=== PATIENT | female | born 1995 | race Caucasian/White ===

== ENCOUNTER 2019-03-19 09:51 | Inpatient (IN) | payer OTHER, SELFPAY ==
--- NOTE | 2019-03-12 12:52 | PCM.HP.BLA ---
History and Physical Date of Admission: 03/19/19 Pre-Op History and Physical ? HPI: The patient is a 23 year old female presenting for pre-operative visit. She is scheduled for?, for?breech on?03/19/19. ??Procedure discussed along with risks, benefits and complications. ?Other alternatives discussed for management. Consent form signed??Yes.? PAST?MEDICAL?HISTORY PAST MEDICAL HISTORY Diagnosis Date ? Asthma ? ? hemolytic uremic syndrome ? ? 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 PMH - PAST MEDICAL HISTORY OF 2005 ? kidney failure from ecoli ? ? PAST?SURGICAL?HISTORY PAST SURGICAL HISTORY Procedure Laterality Date ? PAST SURGICAL HISTORY OF ? ? ? for cath insertion for diaylisis ? ? CURRENT?MEDICATIONS Current Outpatient Medications Medication Sig Dispense Refill ? 21/iron fu/folic acid ( COMPLETE ORAL) Take by mouth. ? ? ? albuterol HFA (PROVENTIL HFA, VENTOLIN HFA) 90 mcg/actuation inhaler Inhale 2 Puffs as instructed every 6 hours as needed for Wheezing/Shortness of Breath. 1 Inhaler 2 ? No current facility-administered medications for this visit.? ? ALLERGIES:?Patient has no known allergies. ? PERSONAL HISTORY:? SOCIAL?HISTORY Social History ??Socioeconomic History ?Marital status: ?Spouse name: Tony ?Number of children: 0 ?Years of education: 16 ?Highest education level: Not on file ??Occupational History ?Occupation: DESKTOP SUPPORT ASSOCIATE ?Employer: [employer] ??Social Needs ?Financial resource strain: Not on file ?Food insecurity: ?Worry: Not on file ?Inability: Not on file ?Transportation needs: ?Medical: Not on file ?Non-medical: Not on file ??Tobacco Use ?Smoking status: Never Smoker ?Smokeless tobacco: Never Used ??Substance and Sexual Activity ?Alcohol use: Yes ?Comment: occasionally, not while ?Drug use: No ?Sexual activity: Yes ?Partners: Male ? control/protection: Condom, Pill ??Lifestyle ?Physical activity: ?Days per week: Not on file ?Minutes per session: Not on file ?Stress: Not on file ??Relationships ?Social connections: ?Talks on phone: Not on file ?Gets together: Not on file ?Attends episcopalian service: Not on file ?Active member of club or organization: Not on file ?Attends meetings of clubs or organizations: Not on file ?Relationship status: Not on file ?Intimate partner violence: ?Fear of current or ex partner: Not on file ?Emotionally abused: Not on file ?Physically abused: Not on file ?Forced sexual activity: Not on file ??Other Topics ?Concerns: ?Not on file ??Social History Narrative ?Not on file ? FAMILY HISTORY:? FAMILY?HISTORY FAMILY HISTORY Problem Relation Age of Onset ? Thyroid Mother ?Hypothyroidism ? Diabetes Father ? ? Hypertension Father ? ? No Known Problems Brother ? ? Heart Maternal Grandmother ? ? other (Aortic Aneurysm) Maternal Grandmother ? ? Heart Attack Maternal Grandfather ? ? Cancer Paternal Grandmother ?Uterine and Colon Cancer ? No Known Problems Paternal Grandfather ? ? Hypertension Sister ? ? REVIEW OF SYMPTOMS: GENERAL: denies fevers or chills ENDOCRINOLOGY: has not been on steroids Cardiology : denies palpitations or chest pain Respiratory: denies SOB or cough Hematology: denies history of prolonged bleeding or easy bruising or VTE Allergy: Denies history of personal or family history of allergy to anesthesia ? ? PHYSICAL EXAMINATION: ? VITALS:?Last menstrual period 06/19/2018. ? GENERAL:??The patient is well nourished, well hydrated in no acute distress. ?, The patient is oriented to time, place, and person. NECK:?Supple. No lynphadenopathy, normal thyroid, no thyromegaly. LUNGS:?Clear to auscultation bilaterally. no wheezes, rhonchi or rales HEART:?Regular rate and rhythm, Normal heart sounds and No murmurs or gallops abd: soft, nontender, gravid ? IMPRESSION:?39 weeks on 03/19, breech ? PLAN:???The risks/benefits/alternatives and personal involved for the planned?c-s?were reviewed with the patient. Her questions were answered to her satisfaction and she desires to proceed. ?Consent was signed. ?I reviewed with her postop instructions and expectations. ? ? I have reviewed and updated past medical and surgical history, medications and allergies? Maren Bhakta M.D.
[2019-03-19] VITALS (20 sets, daily range): BP systolic 108–127; BP diastolic 53–89; PULSE 70–92; RESP 16–18; TEMP 36.1–36.7; O2SAT 96–99; BMI 38.7
[2019-03-19] MEDS: Lactated Ringers 1,000 ML 999 ML IV (10:50)
[2019-03-19 11:23] LABS: Absolute Lymphocyte Count 1.43 X10^3/uL (0.83-4.51); Absolute Neutrophil Count 6.1 X10^3/uL (2.0-7.7); Basophil# 0.03 X10^3/uL; Basophil% 0.4 % (0-1); Eosinophil# 0.08 X10^3/uL; Hematocrit 36.7 % (37-47); Hemoglobin 12.6 g/dL (12.0-15.0); Lymphocyte # 1.43 X10^3/ul (4.0); Lymphocyte % 17.3 % (19-41); Mean Corp Hgb Conc 34.3 g/dL (32-36); Mean Corpuscular Hgb 31.3 pg (27.0-32.0); Mean Corpuscular Volume 91.3 fL (81-99); Mean Platelet Vol. 9.8 fl (6.2-12.0); Monocyte# 0.65 X10^3/uL; Monocyte% 7.9 % (0-10); NRBC Flagged by Analyzer 0 % (0-5); Neutrophil # 6.06 X10^3/uL (2.7-7.7); Platelet Count 168 K/mm3 (150-450); RBC Distribution Width CV 13.2 % (11.6-14.6); RBC Distribution Width SD 43.8 fl (35.1-43.9); Red Blood Count 4.02 M/mm3 (4.2-5.4); White Blood Count 8.3 K/mm3 (4.4-11.0)
[2019-03-19] MEDS: Lactated Ringers 1,000 ML 150 ML IV (12:00)
[2019-03-19] MEDS: Sodium Citrate/Citric Acid 30 ML UDC PO (12:10)
[2019-03-19] MEDS: Cefazolin 2 GM in 0.9% Normal Saline 100 ML IV (12:20)
[2019-03-19] MEDS: Oxytocin 30 units/NS 500 ml 30 UNITS/500 ML IV.SOLN 167 UNITS IV (13:30)
--- NOTE | 2019-03-19 16:01 | PCM.OPRPT ---
Delivery Classification: Scheduled Final RUBEN: 03/26/19 Final RUBEN Source: US <20 weeks Gestational age: 39 Weeks and 0 Days metal control coordinator: LIUDMILA Boone First Type of Anesthesia:: Spinal Special Medications: none Implants Used: none Date of Procedure: 03/19/19 Pre-Operative Diagnosis: 39 week nulliparous patient, joanna breech presentation Post-Operative Diagnosis: same Indications for : Breech Description of Procedure: the patient taken operating room where she was prepped and draped in dorsal supine position with leftward tilt. After ensuring adequacy of anesthesia, a Pfannenstiel skin incision was made 2 cm above the symphysis pubis and carried through to the underlying layer fashion with scalpel. the fascia was incised in the midline and the fascial incision was extended laterally with the Padilla scissors. The fascia was dissected off the rectus muscles and the rectus muscles are in the midline. The peritoneum was entered sharply and the peritoneal incision carried superiorly late and inferiorly with good visualization of bladder. The bladder blade was inserted and the uterine incision was made in a low transverse fashion with the scalpel and extended with traction on the uterus placed superiorly and inferiorly. The membranes were ruptured for clear fluid. The buttocks were brought out of the incision and the legs were swept out individually. With gentle fundal pressure to keep the head flexed, the arms were swept out individually and the head was delivered easily. The infant was stimulated. Cord clamping was delayed a Nicki 30 seconds. The cord was then clamped and cut and the infant was handed off to the waiting nursing staff. The placenta was extracted with gentle cord traction and fundal massage and the uterus was exteriorized and cleared of all clots and debris. The cervix was dilated with a ring forcep. The uterine incision was closed with #1 Vicryl suture in a running locked fashion. A second layer suture was placed imbricating the first, and the uterine incision was hemostatic. The peritoneal cavity was cleared of all clots and debris and the uterus is placed back into the peritoneal cavity. Again the uterine incision was examined and found to be hemostatic. The parietal peritoneum and rectus muscles were closed en bloc with a #1 Vicryl suture in a running standard fashion. Any bleeding was Bovie cauterized. Our gloves were changed, and the fascia was closed with PDS suture in a running standard fashion. The subcutaneous tissue was examined and any bleeding was Bovie cauterized and it was reapproximated with 3-0 Vicryl suture in a running standard fashion. Subcutaneous tissue was reapproximated in subcuticular fashion by the CHILD LIFE ASSISTANT with me present in the operating suite. Sponge and needle counts were correct. The patient was taken to her room for recovery in stable condition.I performed the entire procedure with assistance other than as dictated above. Amniotic Membrane Rupture Type: Artificial Amniotic Fluid Description: Clear Placenta Disposition: [facility] Specimen(s) sent to pathology: none Drain: Kuhn to straight drain Fluids Replaced: 1000 Cord Entanglement: None Cord Vessel Description: 3 Vessels Esitmated Blood Loss (ml): 900 Gender: Female - 8lb 7 oz, [place] (1 minute): 9 (5 minute): 9 Delayed cord clamping: Yes Antibiotic Given: Ancef 2 grams IV x1 Complications: None - Admit VTE Documentation VTE Present on Admission: No VTE Mechan Device Prophylaxis: SCD's VTE Pharm Prophylaxis ordered?: Yes
[2019-03-19] MEDS: Lactated Ringers 1,000 ML 100 ML IV (16:51)
[2019-03-19] MEDS: Ketorolac 30 MG/ML Syringe IV (18:31)
[2019-03-19] MEDS: Docusate Sodium 100 MG Capsule PO (22:52)
[2019-03-19] MEDS: Senna/Docusate Sodium 1 Tablet PO (22:52)
[2019-03-20] VITALS (12 sets, daily range): BP systolic 108–130; BP diastolic 55–77; PULSE 78–91; RESP 12–18; TEMP 36.2–36.9; O2SAT 96–98
[2019-03-20] MEDS: Ketorolac 30 MG/ML Syringe IV ×4 (00:07→18:06)
[2019-03-20] MEDS: Lactated Ringers 1,000 ML 100 ML IV (02:01)
[2019-03-20 06:55] LABS: Hematocrit 30.7 % (37-47); Hemoglobin 10.3 g/dL (12.0-15.0); Mean Corp Hgb Conc 33.6 g/dL (32-36); Mean Corpuscular Hgb 30.6 pg (27.0-32.0); Mean Corpuscular Volume 91.1 fL (81-99); Mean Platelet Vol. 9.3 fl (6.2-12.0); Platelet Count 148 K/mm3 (150-450); RBC Distribution Width CV 13.4 % (11.6-14.6); RBC Distribution Width SD 44.5 fl (35.1-43.9); Red Blood Count 3.37 M/mm3 (4.2-5.4); White Blood Count 11.5 K/mm3 (4.4-11.0)
--- NOTE | 2019-03-20 10:27 | PN.OBGYN_ITS ---
Subjective: Pain controlled - Physical Exam General: Alert, Oriented x3 Abdomen: Soft, Non Tender, Non-Distended - ff mid & below umb; inc - bandage intact with stable dried blood Extremities: No Calf Tenderness Vital Signs Temp Pulse Resp BP Pulse Ox 97.1 F L 78 12 111/63 97 03/20/19 08:53 03/20/19 08:53 03/20/19 08:53 03/20/19 08:53 03/20/19 08:53 Oxygen Delivery Method Room Air Weight: 232 lb 12.93 oz Body Mass Index (BMI) 38.7 Intake and Output for Last 24 Hours 03/18/19 03/19/19 03/20/19 23:59 23:59 23:59 Intake Total 3526.67 / 3526.67 Output Total 275 / 675 1900 / 1900 Balance 3251.67 / 2851.67 115.00 / 115.00 Laboratory Tests Past 24 Hrs 03/19/19 03/19/19 03/20/19 10:50 10:50 06:45 WBC 8.3 11.5 H RBC 4.02 L 3.37 L Hgb 12.6 10.3 L Hct 36.7 L 30.7 L MCV 91.3 91.1 MCH 31.3 30.6 MCHC 34.3 33.6 RDW Std Deviation 43.8 44.5 H RDW Coeff of Kalee 13.2 13.4 Plt Count 168 148 L MPV 9.8 9.3 Immature Gran % (Auto) 0.400 Neut % (Auto) 73.0 H Lymph % (Auto) 17.3 L [place] % (Auto) 7.9 Eos % (Auto) 1.0 Baso % (Auto) 0.4 Absolute Neuts (auto) 6.1 Absolute Lymphs (auto) 1.43 Nucleated RBC % 0 Blood Type O POSITIVE Antibody Screen NEGATIVE Medical Necessity - Tobacco Use Smoking Status: Never smoker Assessment/Plan POD#1 Heme - HDS, cbc reviewed ID - AF, no signs infection GI - ADAT - adequate UOP
[2019-03-20] MEDS: Enoxaparin 40 MG/0.4 ML Syringe SC (11:17)
[2019-03-20] MEDS: Senna/Docusate Sodium 1 Tablet PO ×2 (11:17→21:41)
[2019-03-20] MEDS: Docusate Sodium 100 MG Capsule PO (11:17)
[2019-03-20] MEDS: 0.9% Saline Lock 10 ML Syringe IV ×2 (11:17→18:06)
[2019-03-20] MEDS: Acetaminophen 500 MG Tablet 1000 MG PO (21:41)
[2019-03-21] MEDS: 0.9% Saline Lock 10 ML Syringe IV ×2 (00:06→06:37)
[2019-03-21] MEDS: Ketorolac 30 MG/ML Syringe IV (00:06)
[2019-03-21 01:55] VITALS: BP 100/55; PULSE 79; RESP 15; TEMP 36.2; O2SAT 97
[2019-03-21] MEDS: Enoxaparin 40 MG/0.4 ML Syringe SC (06:37)
[2019-03-21] MEDS: Naproxen 250 MG Tablet PO (06:45)
[2019-03-21 08:00] VITALS: BP 115/72; PULSE 77; RESP 16; TEMP 36.4
[2019-03-21] MEDS: Senna/Docusate Sodium 1 Tablet PO (10:32)
--- NOTE | 2019-03-21 12:19 | PCM.PN.OB ---
Subjective: No complaints - Physical Exam General: Alert, Oriented x3 Abdomen: Soft - ff mid & below umb; inc - stable dried blood on bandage, otherwise c/d/i, Non Tender, Non-Distended Extremities: No Calf Tenderness Vital Signs Temp Pulse Resp BP Pulse Ox 97.5 F L 77 16 115/72 97 03/21/19 08:00 03/21/19 08:00 03/21/19 08:00 03/21/19 08:00 03/21/19 01:55 Oxygen Delivery Method Room Air Weight: 232 lb 12.93 oz Body Mass Index (BMI) 38.7 Intake and Output for Last 24 Hours 03/19/19 03/20/19 03/21/19 23:59 23:59 23:59 Intake Total 3526.67 / 3526.67 Output Total 275 / 675 2300 / 2300 Balance 3251.67 / 2851.67 -285.00 / -285.00 Medical Necessity - Tobacco Use Smoking Status: Never smoker Assessment/Plan POD#1 D/c home per patient request
--- NOTE | 2019-03-21 12:22 | DCINST_ITS ---
Discharge Diet: No Restrictions Discharge Activity: May not drive while taking narcotic pain medications., May Shower May resume sexual activity in: 6 weeks Weight Bearing Status: Weight bearing as tolerated, Full weight bearing, Partial weight bearing, Toe touch weight bearing, No weight bearing Additional Instructions: If you experience any of the following, contact your healthcare provider. * Bleeding that soaks a pad every hour for 2 hours * Fever 100.4 or higher * Unrelieved incision or abdominal pain * Swelling, redness, discharge or bleeding from your incision or episiotomy site * Your incision begins to separate * Problems urinating (including inability to urinate or burning while urinating). * Visual changes * Severe headache * Flu-like symptoms * Pain or redness in one of both of your breasts * Pain, warmth, tenderness or swelling in your legs, especially the calf area * Frequent nausea and vomiting * Symptoms of depression or anxiety If you experience any of the following, call 911 or go to the nearest Emergency Room. * Chest pain * Problems breathing * Seizure activity * Partial or complete paralysis of a body part, slurred speech, weakness or drooping of the face, or a sudden inability to walk or hold your balance Allergies/Adverse Reactions: Allergies No Known Allergies Allergy (Verified 03/19/19 11:05) Medications to take at Discharge Ptc248/Iron/Folic/Dha [ Formula-Dha Softgel] 1 ea PO DAILY 03/19/19 Oxycodone [Oxyir] 5 mg PO Q6H PRN PRN 2 Days #5 tab 03/21/19 The following prescriptions were given: Oxycodone [Oxyir] 5 mg PO Q6H PRN PRN 2 Days #5 tab PRN Reason: Pain Prescription Printed Follow-Up: Call to make an appointment with your doctor for an incision check in 1-2 weeks. You will also need a 6 week post- follow up appointment. Test results from this visit will be discussed in further detail at your follow- up appointment, if applicable. Primary Care Physician: Care Physician,No Primary [Primary Care Provider] -
--- NOTE | 2019-03-21 12:22 | PCM.DCCSEC ---
Discharge Diet: No Restrictions Discharge Activity: May not drive while taking narcotic pain medications., May Shower May resume sexual activity in: 6 weeks Weight Bearing Status: Weight bearing as tolerated, Full weight bearing, Partial weight bearing, Toe touch weight bearing, No weight bearing Additional Instructions: If you experience any of the following, contact your healthcare provider. Bleeding that soaks a pad every hour for 2 hours Fever 100.4 or higher Unrelieved incision or abdominal pain Swelling, redness, discharge or bleeding from your incision or episiotomy site Your incision begins to separate Problems urinating (including inability to urinate or burning while urinating). Visual changes Severe headache Flu-like symptoms Pain or redness in one of both of your breasts Pain, warmth, tenderness or swelling in your legs, especially the calf area Frequent nausea and vomiting Symptoms of depression or anxiety If you experience any of the following, call 911 or go to the nearest Emergency Room. Chest pain Problems breathing Seizure activity Partial or complete paralysis of a body part, slurred speech, weakness or drooping of the face, or a sudden inability to walk or hold your balance Allergies/Adverse Reactions: Allergies No Known Allergies Allergy (Verified 03/19/19 11:05) Medications to take at Discharge Xcm672/Iron/Folic/Dha [ Formula-Dha Softgel] 1 ea PO DAILY 03/19/19 Oxycodone [Oxyir] 5 mg PO Q6H PRN PRN 2 Days #5 tab 03/21/19 The following prescriptions were given: Oxycodone [Oxyir] 5 mg PO Q6H PRN PRN 2 Days #5 tab PRN Reason: Pain Prescription Printed Follow-Up: Call to make an appointment with your doctor for an incision check in 1-2 weeks. You will also need a 6 week post- follow up appointment. Test results from this visit will be discussed in further detail at your follow-up appointment, if applicable. Primary Care Physician: Care Physician,No Primary [Primary Care Provider] -
== END 2019-03-21 12:55 | disposition home or self-care (01) | DRG 788 ==
PROVIDERS: Admitting Provider Obstetrics & Gynecology; Referring Provider Obstetrics & Gynecology; Visit Provider Obstetrics & Gynecology
PROC: 10D00Z1 Extraction of Products of Conception, Low, Open Approach (ICD-10-PCS; CPT 59514; principal; 2019-03-19 12:00)
DX: O32.1XX0 Maternal care for breech presentation, not applicable or unspecified (principal); Z3A.39 39 weeks gestation of pregnancy; Z37.0 Single live birth
CPT/HCPCS: 85025; 85027; 86850; 86900; 86901; 99218; J7120; A4216; G0378; J2405

== ENCOUNTER 2019-09-01 14:28 | Emergency (ER) | payer OTHER, SELFPAY ==
[2019-03-19 10:32] VITALS: BMI 38.7
[2019-09-01 14:29] VITALS: BP 158/89; PULSE 72; RESP 16; TEMP 36.6; O2SAT 98; BMI 31.8
[2019-09-01 15:05] VITALS: BP 141/85; PULSE 82; RESP 17; O2SAT 99
--- NOTE | 2019-09-01 15:05 | EKG12_ITS ---
Test Reason : WEAKNESS Blood Pressure : / mmHG Vent. Rate : 061 BPM Atrial Rate : 061 BPM P-R Int : 128 ms QRS Dur : 090 ms QT Int : 438 ms P-R-T Axes : 025 049 018 degrees QTc Int : 440 ms Normal sinus rhythm Normal ECG Confirmed by REGINALDO MONTENEGRO, PORSCHE ([id number]), news editor MARJORIE BYRD ([id number]) on 09/06/2019 2:28:39 PM Referred By: CORBIN Confirmed By:CLARICE HAIR MD
--- NOTE | 2019-09-01 15:05 | CT_ITS ---
STUDY: CT BRAIN WITHOUT CONTRAST REASON FOR EXAM: Female, 24 years old. Right peripheral vision changes-blurry, frontal headache, weakness. RADIATION DOSAGE (If Supplied By Facility): CTDIvol = ( 44.99 ) mGy, DLP = ( 711.75 ) mGycm TECHNIQUE: Transaxial CT imaging of the brain was performed without administration of intravenous contrast material. Individualized dose optimization techniques were used for this CT. COMPARISON: No relevant priors. FINDINGS: Normal soft tissue structures. Normal calvarium. Normal size ventricles and extra-axial spaces for the patient''s age. Normal white matter tracts of the cerebral hemispheres. Normal basal ganglia and thalami. Normal brainstem. Normal cerebellum. There is no intracranial hemorrhage. There are no findings of an acute ischemic infarction. Normal visualized paranasal sinuses. CT/Brain/Head without Contrast IMPRESSION: Normal unenhanced CT scan of the brain. Electronically Signed: Moshe Jimenez DO at 16:52 EST Tel , Service support ,
[2019-09-01 15:33] VITALS: O2SAT 98
[2019-09-01 15:36] VITALS: BP 141/85; PULSE 65; RESP 18; O2SAT 98
[2019-09-01] MEDS: 0.9% Normal Saline 1,000 ML 999 ML IV (15:38)
[2019-09-01 15:46] LABS: Bedside Glucose 84 mg/dL (70-110)
--- NOTE | 2019-09-01 15:48 | ED.RN ---
per dr. stark. pt nih is 0, able to discontinue nih at this time.
[2019-09-01 15:58] LABS: Internal QC Validated? YES +Cl - CLEAR BKGD; Pregnancy, Serum, hCG Quali. NEGATIVE Negative
[2019-09-01 16:03] LABS: Absolute Lymphocyte Count 1.75 X10^3/uL (0.83-4.51); Basophil# 0.05 X10^3/uL; Eosinophil# 0.04 X10^3/uL; Eosinophils% 0.8 % (0-5); Hematocrit 43.4 % (37-47); Hemoglobin 14.9 g/dL (12.0-15.0); Lymphocyte # 1.75 X10^3/ul (4.0); Mean Corp Hgb Conc 34.3 g/dL (32-36); Mean Corpuscular Hgb 30.6 pg (27.0-32.0); Mean Corpuscular Volume 89.1 fL (81-99); Mean Platelet Vol. 9.2 fl (6.2-12.0); Monocyte# 0.34 X10^3/uL; Monocyte% 6.6 % (0-10); NRBC Flagged by Analyzer 0 % (0-5); Neutrophil # 2.96 X10^3/uL (2.7-7.7); Neutrophil % 57.4 % (47-70); Platelet Count 232 K/mm3 (150-450); RBC Distribution Width CV 11.4 % (11.6-14.6); RBC Distribution Width SD 36.9 fl (35.1-43.9); Red Blood Count 4.87 M/mm3 (4.2-5.4); White Blood Count 5.2 K/mm3 (4.4-11.0)
[2019-09-01 16:05] LABS: Anion Gap 6 (5-15); BUN 8 mg/dL (7-18); BUN/Creat Ratio 9.4 RATIO (10-20); Calcium,Total 9.3 mg/dL (8.5-10.1); Chloride 110 mmol/L (98-107); Creatinine, Serum 0.85 mg/dL (0.55-1.02); EST Glomerular Filtration Rate 86 mL/min (>60); Est Glom Filt Rate - Afr Amer 104 mL/min (>60); Estimated Creatinine Clearance 90.25 ml/min; Glucose 91 mg/dL (74-106); Potassium 3.7 mmol/L (3.5-5.1); Sodium Level 142 mmol/L (136-145)
[2019-09-01 17:02] VITALS: BP 119/82; PULSE 65; RESP 18; O2SAT 100
--- NOTE | 2019-09-01 17:05 | ED.DCSUM_ITS ---
- ER Visit Summary Date of Service: 09/01/19 Chief Complaint: Blurred vision, headache History of Present Illness: The patient is a 24 F with no primary care physician. Patient reports approximate 130 this afternoon she was in sitting in front of her computer at work and her vision became blurred in the periphery on the right. These symptoms lasted approximately 15 to 20 minutes. States that she left work and was driving home and had the abrupt onset of a sharp pain on the left side of her forehead. States that it was 6 out of 10 in severity at onset and is 4 out of 10 currently. She has never had a similar headache. Upon arrival home patient reports that she tried to text someone but that she was unable to make sense of the words when she was texting. She then tried to voice text and found that her speech was not making sense either. That has now resolved as well and lasted approximately 45 minutes. Patient reports currently she just has a sensation of generalized weakness. She has a headache that is now 4 out of 10 in severity. She does report she has had similar headaches to this in the past. No family history of migraines, cerebral aneurysms, or MS. Physical Examination: Vitals: Stable. Afebrile. General: Well-nourished and well-developed. Head: Normocephalic atraumatic. Neck: Supple, no lymphadenopathy. No JVD. Nontender. Cardiovascular: Regular rate and rhythm. No murmurs. Respiratory: No respiratory distress. Clear to auscultation bilaterally. Abdominal: Soft, nontender, nondistended, normal bowel sounds. No guarding, rebound, or peritoneal signs. Back: Nontender. Extremities: Nontender, no edema. Skin: Normal color, no rash. Neurologic: Alert and oriented ?3. Cranial nerves II through XII are intact. Normal strength and sensation. NIH scale is 0. Psych: Depressed and tearful. Anxious. Test Results: EKG is sinus at 60 with no acute changes. test negative. Chem-7 shows a chloride of 110. CBC is normal. Clinical Impression(s) from Imaging Studies Brain CT 09/01/19 15:05 IMPRESSION: Normal unenhanced CT scan of the brain. Electronically Signed: Moshe Jimenez DO at 16:52 EST Tel , Service support , Emergency Department Course and Treatment: Patient's NIH scale is 0. She clearly is not a TPA candidate. She refused any pain medications. Treatment Plan: I had a prolonged schedule the patient for possible etiologies of this. We discussed the possibility of a complex migraine with the vision changes and the expressive aphasia. It is odd that the expressive aphasia was still present when she attempted to text. We also discussed the possibility of a TIA. She is back to baseline and would like to go home. She will be discharged with instructions to follow-up with Dr. Rodrigues as soon as possible. Return to the emergency department for any worsening symptoms. Disposition: To home in improved and stable condition. Impression: 1. Cephalgia. 2. Expressive a aphasia, resolved. 3. Blurred vision, resolved. This note was generated with [employer] software. It may contain incorrect words, spelling, and punctuation that were not noted in review of the chart prior to signing ED Disposition - Plan for ED Patient: Instructions: What Is a TIA? Referrals: Mark Rodrigues MD [STAFF PHYSICIAN] - As soon as possible
--- NOTE | 2019-09-01 17:21 | ED.RN ---
PT GIVEN WRITTEN AND VERBAL DISCHARGE INSTRUCTIONS AND HOME GOING PAPER WORK. PT A+OX4 AND VERBALIZES UNDERSTANDING AND DENIES ANY FURTHER QUESTIONS. PT IV D/C AND COVERED WITH 2X2 GAUZE AND PAPER TAPE. PT DRESSES SELF AND AMBULATES OUT OF DEPT WITH FAMILY.
== END 2019-09-01 17:22 | disposition home or self-care (01) ==
PROVIDERS: Emergency Provider Emergency Medicine
DX: R51 Headache (principal); H53.8 Other visual disturbances; R47.01 Aphasia
CPT/HCPCS: 70450; 80048; 82962; 84703; 85025; 93005; 96360; 99284; J7030

== ENCOUNTER → 2020-04-03 10:00 | Outpatient (CLI) | payer OTHER, SELFPAY | PROVIDERS: Referring Provider Registered Nurse; Visit Provider Registered Nurse | DX: Z20.828 Contact with and (suspected) exposure to other viral communicable diseases (principal) | CPT/HCPCS: 87635; C9803; U0003 ==

== ENCOUNTER 2021-08-15 08:26 | Outpatient (CLI) | payer OTHER, SELFPAY ==
[2021-08-15 12:15] LABS: Absolute Lymphocyte Count 1.67 X10^3/uL (0.83-4.51); Absolute Neutrophil Count 2.3 X10^3/uL (2.0-7.7); Basophil# 0.04 X10^3/uL; Basophil% 0.9 % (0-1); Eosinophil# 0.12 X10^3/uL; Eosinophils% 2.7 % (0-5); Hematocrit 41.1 % (37-47); Lymphocyte # 1.67 X10^3/ul (0.83-4.51); Mean Corp Hgb Conc 34.1 g/dL (32-36); Mean Corpuscular Hgb 30.8 pg (27.0-32.0); Mean Corpuscular Volume 90.3 fL (81-99); Mean Platelet Vol. 10.6 fl (6.2-12.0); Monocyte# 0.31 X10^3/uL; Monocyte% 7.1 % (0-10); NRBC Flagged by Analyzer 0 % (0-5); Neutrophil # 2.25 X10^3/uL (2.7-7.7); Neutrophil % 51.3 % (47-70); Platelet Count 221 K/mm3 (150-450); RBC Distribution Width CV 12.4 % (11.6-14.6); RBC Distribution Width SD 40.6 fl (35.1-43.9); Red Blood Count 4.55 M/mm3 (4.2-5.4); White Blood Count 4.4 K/mm3 (4.4-11.0)
[2021-08-15 12:31] LABS: Vitamin D,25 Hydroxy 25.6 ng/mL
[2021-08-15 12:41] LABS: Hemoglobin A1c 4.8 % (3.8-5.6)
[2021-08-15 12:44] LABS: ALB/GLOB Ratio 1.3 RATIO (0.9-2.4); AST(SGOT) 20 U/L (15-37); Alanine Aminotransfer ALT/SGPT 27 U/L (13-56); Albumin, Serum 4.1 g/dL (3.2-5.0); Alkaline Phosphatase 64 U/L (45-117); Anion Gap 6 (5-15); BUN 22 mg/dL (7-18); BUN/Creat Ratio 28.3 RATIO (10-20); Calcium,Total 8.9 mg/dL (8.5-10.1); Chloride 107 mmol/L (98-107); Cholesterol 155 mg/dL (200); Creatinine, Serum 0.78 mg/dL (0.55-1.02); EST Glomerular Filtration Rate 94 mL/min (>60); Est Glom Filt Rate - Afr Amer 114 mL/min (>60); Free T3 2.2 pg/mL (2.18-3.98); Globulin 3.2 g/dL (2.2-4.2); Glucose 78 mg/dL (74-106); High Density Lipoprotein 55 mg/dL; Potassium 4.2 mmol/L (3.5-5.1); Protein, Total 7.3 g/dL (6.4-8.2); Sodium Level 138 mmol/L (136-145); T4 Free Direct 0.88 ng/dL (0.76-1.46); Thyroid Stim Hormone (TSH) 1.41 uIU/mL (0.358-3.74); Triglycerides 56 mg/dL; Very Low Density Lipoprotein 11 mg/dL (5-40)
== END 2021-08-15 23:59 | disposition short-term general hospital (02) ==
LOC: BIMLAB 08:27
PROVIDERS: PCP Internal Medicine; Referring Provider Internal Medicine; Visit Provider Internal Medicine
DX: Z00.00 Encounter for general adult medical examination without abnormal findings (principal); E66.3 Overweight; E55.9 Vitamin D deficiency, unspecified; Z83.49 Family history of other endocrine, nutritional and metabolic diseases; Z76.89 Persons encountering health services in other specified circumstances; Z13.220 Encounter for screening for lipoid disorders; Z13.1 Encounter for screening for diabetes mellitus
CPT/HCPCS: 36415; 80053; 80061; 81291; 82306; 83036; 84439; 84443; 84481; 85025

== ENCOUNTER 2022-08-16 09:25 | Inpatient (IN) | payer OTHER, SELFPAY ==
[2022-08-16] VITALS (15 sets, daily range): BP systolic 72–134; BP diastolic 39–76; PULSE 68–91; RESP 11–18; TEMP 35.6–36.6; O2SAT 95–99; BMI 37.8
[2022-08-16] MEDS: Lactated Ringers 1,000 ML 999 ML IV (09:52)
[2022-08-16] MEDS: Acetaminophen 500 MG Tablet 1000 MG PO ×3 (10:00→22:29)
[2022-08-16 10:14] LABS: Absolute Lymphocyte Count 1.41 X10^3/uL (0.83-4.51); Absolute Neutrophil Count 7.9 X10^3/uL (2.0-7.7); Basophil# 0.04 X10^3/uL; Basophil% 0.4 % (0-1); Eosinophil# 0.17 X10^3/uL; Eosinophils% 1.7 % (0-5); Hematocrit 36.1 % (37-47); Hemoglobin 12.3 g/dL (12.0-15.0); Lymphocyte # 1.41 X10^3/ul (0.83-4.51); Lymphocyte % 14.1 % (19-41); Mean Corp Hgb Conc 34.1 g/dL (32-36); Mean Corpuscular Hgb 29.2 pg (27.0-32.0); Mean Corpuscular Volume 85.7 fL (81-99); Mean Platelet Vol. 9.7 fl (6.2-12.0); Monocyte# 0.47 X10^3/uL; Monocyte% 4.7 % (0-10); NRBC Flagged by Analyzer 0 % (0-5); Neutrophil # 7.87 X10^3/uL (2.7-7.7); Neutrophil % 78.8 % (47-70); Platelet Count 190 K/mm3 (150-450); RBC Distribution Width CV 13.1 % (11.6-14.6); RBC Distribution Width SD 40.4 fl (35.1-43.9); Red Blood Count 4.21 M/mm3 (4.2-5.4)
--- NOTE | 2022-08-16 10:23 | HP.PCM_ITS ---
History and Physical Date of Admission: 08/16/22 Pre-Op History and Physical ? HPI: The patient is a 26 year old female presenting for pre-operative visit. She is scheduled for , for previous c/s on 08/16/22. Procedure discussed along with risks, benefits and complications. Other alternatives discussed for management. Consent form signed? Yes. ? ? PAST MEDICAL HISTORY PAST MEDICAL HISTORY Diagnosis Date ? Asthma ? ? hemolytic uremic syndrome ? ? 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 PMH - PAST MEDICAL HISTORY OF 2005 ? kidney failure from ecoli ? Vitamin D deficiency ? ? ? PAST SURGICAL HISTORY PAST SURGICAL HISTORY Procedure Laterality Date ? PAST SURGICAL HISTORY OF ? ? ? for cath insertion for diaylisis ? ? ? CURRENT MEDICATIONS Current Outpatient Medications Medication Sig Dispense Refill ? fluticasone (FLONASE) 50 mcg/actuation nasal spray Use 2 Sprays in each nostril once daily. Rinse mouth after use. 1 Each 0 ? aspirin, enteric coated (ECOTRIN LOW STRENGTH) 81 mg EC tablet Take 1 tablet by mouth once daily. ? ? ? prental multivitamin 27 mg iron- 800 mcg tablet Take 1 tablet by mouth once daily. ? ? ? B cmplx 4/vit D3/C/folic/zinc (VITAL-D RX ORAL) Take by mouth. ? ? ? cholecalciferol, vitamin D3, (D3-2000 ORAL) Take by mouth. ? ? ? albuterol HFA (PROVENTIL HFA, VENTOLIN HFA) 90 mcg/actuation inhaler Inhale 2 Puffs as instructed every 6 hours as needed for Wheezing/Shortness of Breath. 1 Inhaler 2 ? No current facility-administered medications for this visit. ? ? ALLERGIES: Patient has no known allergies. ? PERSONAL HISTORY: SOCIAL HISTORY Social History ? Tobacco Use ? Smoking status: Never ? Smokeless tobacco: Never Vaping Use ? Vaping Use: Never used Substance Use Topics ? Alcohol use: Not Currently ? ? Comment: occasionally, not while ? Drug use: No ? FAMILY HISTORY: FAMILY HISTORY FAMILY HISTORY Problem Relation Age of Onset ? Thyroid Mother ? ? Hypothyroidism ? Diabetes Father ? ? Hypertension Father ? ? Hypertension Sister ? ? No Known Problems Brother ? ? Cancer Maternal Grandmother ? ? Heart Maternal Grandmother ? ? other (Aortic Aneurysm) Maternal Grandmother ? ? Heart Attack Maternal Grandfather ? ? Cancer Paternal Grandmother ? ? Uterine and Colon Cancer ? No Known Problems Paternal Grandfather ? ? No Known Problems Daughter ? ? ? REVIEW OF SYMPTOMS: GENERAL: denies fevers or chills ENDOCRINOLOGY: has not been on steroids Cardiology : denies palpitations or chest pain Respiratory: denies SOB or cough Hematology: denies history of prolonged bleeding or easy bruising or VTE Allergy: Denies history of personal or family history of allergy to anesthesia ? PHYSICAL EXAMINATION: ? VITALS: Last menstrual period 11/08/2021. ? GENERAL: The patient is well nourished, well hydrated in no acute distress. , The patient is oriented to time, place, and person. NECK: Supple. No lynphadenopathy, normal thyroid, no thyromegaly. LUNGS: Clear to auscultation bilaterally. no wheezes, rhonchi or rales HEART: Regular rate and rhythm, Normal heart sounds, and No murmurs or gallops GENITALIA: Normal external genitalia, Urethral meatus normal, Bladder nontender, normal vagina and normal vaginal tone, normal cervix, normal uterus, size and consistency, normal adnexa without masses or tenderness, and perineum WNL WET PREP: Not indicated ? IMPRESSION: Estimated Date of Delivery: 08/21/22 previous c/s ? PLAN: The risks/benefits/alternatives and personal involved for the planned c- section were reviewed with the patient. Her questions were answered to her satisfaction and she desires to proceed. Consent was signed. I reviewed with her postop instructions and expectations. ? ? I have reviewed and updated past medical and surgical history, medications and allergies Maren Bhakta M.D. Routine Office Visit on 08/09/2022 Routine Office Visit on 08/09/2022 Revision History
[2022-08-16] MEDS: Lactated Ringers 1,000 ML 150 ML IV (10:53)
[2022-08-16] MEDS: Sodium Citrate/Citric Acid 30 ML UDC PO (11:27)
[2022-08-16] MEDS: Cefazolin 2 GM in 0.9% Normal Saline 100 ML IV (12:00)
--- NOTE | 2022-08-16 12:35 | OP.PCM_ITS ---
Assessment & Plan (1) Previous delivery affecting : (2) 39 weeks gestation of : (3) Single live : Maternal Data Information Final RUBEN: 08/14/22 Gestational age: 39 2/7 Details Operative Information Date of Procedure: 08/16/22 Pre-Operative Diagnosis: previous c/s, 39 weeks Post-Operative Diagnosis: same Indications for : Repeat Elective Classification: Scheduled Procedure Type: low transverse agriculture science teacher #1: Vandana Hernandes Type of Anesthesia: Spinal Anesthesiologist: Hossein Gardner Antibiotic Given: Ancef 2 grams IV x1 Drain: Kuhn to straight drain Estimated Blood Loss: 800 Fluids Replaced: 500 Procedure Start Time: 12:05 Procedure Stop Time: 12:30 Time of Delivery: 12:10 Findings Description of Procedure: The patient was taken to the operating room. She was prepped and draped in the dorsal supine position with a leftward tilt. A Pfannenstiel skin incision was made approximately 2 cm above the symphysis pubis and carried through to underlying layer fascia with the scalpel. The fascia was incised incised in the midline and extended laterally with the Padilla scissors. The fascia was dissected off the rectus muscles with blunt and sharp dissection. The rectus muscles were in the midline and the peritoneum was entered bluntly. The peritoneal incision was stretched and the bladder blade was placed. The uterine incision was made in a low transverse fashion with the scalpel and extended superiorly and inferiorly with blunt dissection. The amniotic membranes were ruptured bluntly and clear amniotic fluid returned. The 's head was brought to the incision in the flexed position and delivered without difficulty. The remainder of the was delivered with gentle traction and fundal pressure in the standard fashion. The mouth and nares were bulb suctioned. The cord was clamped and cut as the infant was stimulated. Cord clamping was not delayed. The infant was handed off to the waiting nursing staff. The placenta was delivered with fundal massage and gentle traction in the standard fashion. The uterus was exteriorized and cleared of all clots and debris. The cervix was dilated with a ring forcep. The uterine incision was closed with #1 Vicryl in a running locked fashion. 2 [id number] sutures were needed in a midline sinus to obtain hemostasis. The incision was examined and was found to be hemostatic. The uterus was placed back into the peritoneal cavity and hemostasis was again confirmed. The rectus muscles were examined and any bleeding was Bovie cauterized. The parietal peritoneum and rectus muscles were closed en bloc with an 0 Vicryl running suture. The surgical teams outer gloves were then changed. The rectus fascia was examined and any bleeding was Bovie cauterized and the rectus fascia was closed with #1 PDS suture in a running standard fashion. The subcutaneous tissue was examining and any bleeding was Bovie cauterized. The subcutaneous tissue was reapproximated with 3-0 Vicryl suture. The skin was closed in a subcuticular fashion with Monocryl suture in. I performed the entire procedure with assistance. All sponge, lap, and needle counts were correct. The patient was taken to her room for recovery in a stable condition. Presentation: Positive for Vertex Amniotic Membrane Rupture Type: Artificial Amniotic Fluid Description: Clear Placental Delivery Description: Expressed Placenta Disposition: [facility] Specimen(s) Sent to Pathology: none Cord Vessel Description: 3 Vessels Cord Entanglement: Around neck x 1, loose Nuchal Cord Compression: Without compression Infant A Gender: Female ([place]) (1 minute): 8 (5 minute): 9 Delayed Cord Clamping: No Complications Complications: none Admit VTE Documentation VTE Present on Admission: No VTE Mechan Device Prophylaxis: SCD's VTE Pharm Prophylaxis Ordered: No Reason Prophylaxis Not Ordered: Procedure Not Indicated
[2022-08-16] MEDS: Oxytocin 15 Units/NS 250ml 15 UNITS/250 ML IV.SOLN 83 UNITS IV (12:50)
[2022-08-16] MEDS: LACTATED RINGERS 500 ML 999 ML IV (12:50)
[2022-08-16] MEDS: Ketorolac 30 MG/ML Syringe IV ×2 (13:31→18:53)
[2022-08-16] MEDS: Lactated Ringers 1,000 ML 100 ML IV (15:51)
[2022-08-17] MEDS: Ketorolac 30 MG/ML Syringe IV ×2 (01:04→07:06)
[2022-08-17 01:08] VITALS: BP 117/59; PULSE 70; RESP 18; O2SAT 96
[2022-08-17] MEDS: Acetaminophen 500 MG Tablet 1000 MG PO ×2 (04:33→11:11)
[2022-08-17 04:35] VITALS: BP 113/67; PULSE 74; RESP 18; TEMP 36.1
[2022-08-17 08:25] VITALS: BP 127/73; PULSE 83; RESP 16; TEMP 36.6
[2022-08-17 08:35] LABS: Hematocrit 31.1 % (37-47); Hemoglobin 10.6 g/dL (12.0-15.0); Mean Corp Hgb Conc 34.1 g/dL (32-36); Mean Corpuscular Hgb 29.7 pg (27.0-32.0); Mean Corpuscular Volume 87.1 fL (81-99); Mean Platelet Vol. 9.2 fl (6.2-12.0); Platelet Count 160 K/mm3 (150-450); RBC Distribution Width CV 13.2 % (11.6-14.6); RBC Distribution Width SD 41.5 fl (35.1-43.9); Red Blood Count 3.57 M/mm3 (4.2-5.4); White Blood Count 11.6 K/mm3 (4.4-11.0)
[2022-08-17] MEDS: Senna/Docusate Sodium 1 Tablet PO (11:11)
--- NOTE | 2022-08-17 11:25 | PCM.PN.OB ---
Subjective Subjective Pt is doing well. Pain is well controlled. She is ambulating and voiding without difficulty. She is tolerating a regular diet without nausea or vomiting. Lochia is normal. She denies chest pain, shortness of breath, leg pain. Objective Data Objective Data Vital Signs: Vital Signs Temp Pulse Resp BP Pulse Ox O2 Del Method 97.9 F 83 16 127/73 H 96 Room Air 08/17/22 08:25 08/17/22 08:25 08/17/22 08:25 08/17/22 08:25 08/17/22 01:08 08/17/22 04:35 Oxygen Delivery Method Room Air Weight: 227 lb 1.218 oz Body Mass Index (BMI) 37.8 Intake & Output: Intake and Output for Last 24 Hours 08/15/22 08/16/22 08/17/22 23:59 23:59 23:59 Intake Total 1994 926.67 / 926.67 Output Total 1050 / 1050 2600 / 2600 Balance 945 / 945 -1673.33 / -1673.33 Lab / Micro Data Result Diagrams: 08/17/22 08:20 Labs: Laboratory Results - last 24 hr 08/17/22 08:20: WBC 11.6 H, RBC 3.57 L, Hgb 10.6 L, Hct 31.1 L, MCV 87.1, MCH 29.7, MCHC 34.1, RDW Std Deviation 41.5, RDW Coeff of Kalee 13.2, Plt Count 160, MPV 9.2 Physical Exam Const alert and no apparent distress General Appearance: comfortable GI soft to palpation GI Narrative: ATTP, dressing c/d/i Assessment & Plan (1) Delivery by section: PLAN: POD#1 s/p RLTCS. Pt is doing well. Vitals and CBC reviewed. . Routine post op care. Anticipate discharge tomorrow.
[2022-08-17] MEDS: Ibuprofen 600 MG Tablet PO (12:54)
[2022-08-17 14:49] VITALS: BP 127/72; PULSE 73; RESP 16; TEMP 36.4; O2SAT 98
== END 2022-08-17 16:35 | disposition home or self-care (01) | DRG 788 ==
PROVIDERS: Admitting Provider Obstetrics & Gynecology; PCP Internal Medicine; Visit Provider Obstetrics & Gynecology
DX: O34.211 Maternal care for low transverse scar from previous cesarean delivery (principal); O69.81X0 Labor and delivery complicated by cord around neck, without compression, not applicable or unspecified; Z37.0 Single live birth; Z3A.39 39 weeks gestation of pregnancy; Z79.82 Long term (current) use of aspirin
CPT/HCPCS: 59050; 85025; 85027; 86850; 86900; 86901; 99221; J7120; G0378; J2405